=== PATIENT | female | born 1940 | race Caucasian/White ===

== ENCOUNTER 2024-02-08 16:14 | Inpatient (IN) | payer MEDICARE, OTHER, SELFPAY ==
[2024-02-08] VITALS (8 sets, daily range): BP systolic 80–123; BP diastolic 60–72; BMI 29.9
[2024-02-08 13:45] LABS: % Basophils 0.4 % (0-2); % Immature Granulocytes 0.5 % (0-0.5); % Monocytes 4.3 % (1.7-9.3); % Neutrophils 89.8 % (42.2-75.2); Absolute Basophils 0.1 10^3/uL (0-0.2); Absolute Immature Granulocytes 0.1 10^3/uL (0-0.05); Absolute Lymphocytes 0.7 10^3/uL (1.2-3.4); Absolute Monocytes 0.6 10^3/uL (0.1-0.6); Absolute Neutrophils 12.7 10^3/uL (1.4-6.5); Hematocrit 38.5 % (37.0-47.0); Hemoglobin 13.6 g/dL (12.0-16.0); Mean Corp Hgb Conc. 35.3 g/dL (33.0-37.0); Mean Corpuscular Hgb 33.9 pg (27.0-31.0); Mean Platelet Volume 10.9 fL (7.4-10.4); Nucleated Red Blood Cells % 0 %; Platelet Count 193 10^3/uL (130-400); Red Blood Cell Count 4.01 10^6/uL (4.20-5.40); Red Cell Dist. Width 14.2 % (11.5-14.5); White Blood Cell Count 14.1 10^3/uL (4.8-10.8)
--- NOTE | 2024-02-08 15:13 | ED.GENMED ---
History of Present Illness
General
Chief Complaint: Abdominal Pain
Time Seen by Provider: 02/08/24 13:07
History of Present Illness
History of Present Illness:
83-year-old female with history of hypertension, hyperlipidemia, and alcohol use disorder presents to the emergency department for evaluation of upper abdominal pain beginning yesterday after eating chicken. Pain has worsened throughout the day
associated with occasional vomiting. No fevers or chills. According to her daughter she is typically quite lively and vibrant and has not wanted to get out of bed today. No prior abdominal surgeries
Review of Systems
Review of Systems
Allergies reviewed?: Yes
All Other Systems: ROS reviewed and negative except as documented in HPI and ROS
Phy Exam
Physical Exam
Physical Exam:
GEN: Well appearing, NAD, WDWN
Eyes: PERRLA, EOMs intact, no scleral icterus
HENT: NCAT, oral mucosa moist
Lungs: CTAB, no wheezes, rales, rhonchi, normal chest wall excursion
Cardiac: RRR, no M/R/G, no peripheral edema. Radial pulses 2+ bilat
Abdomen: Soft, moderate upper abdominal tenderness with positive Weaver sign
Neuro: AO x 3
MSK: No gross deformity or ecchymosis. No edema. No digital clubbing
Skin: No rashes, petechiae. Normal color, no pallor or jaundice.
Psych: Calm, cooperative, proper hygiene
Course
Orders/Labs/Results
Orders:
Orders
02/08/24 13:17
US Abdomen Complete/Upper Urgent
Comment:
Reason For Exam: upper abd pain
02/08/24 13:18
Electrocardiogram (*1) Urgent
Reason for Study: Abdominal Pain
EKG- Treatment ONCE
02/08/24 13:25
Complete Blood Count/With Diff Urgent
02/08/24 14:57
Piperacillin/Tazo 3.375 Gram [Zosyn] 3.375 gram in 50 ml IV NOW
02/08/24 15:04
Comprehensive Metabolic Panel Urgent
Lipase Urgent
Abnormal Lab Results
02/08/24
13:25
WBC 14.1 H 10^3/uL
(4.8-10.8)
RBC 4.01 L 10^6/uL
(4.20-5.40)
MCH 33.9 H pg
(27.0-31.0)
MPV 10.9 H fL
(7.4-10.4)
Abs Immat Gran (auto) 0.1 H 10^3/uL
(0-0.05)
Absolute Neuts (auto) 12.7 H 10^3/uL
(1.4-6.5)
Absolute Lymphs (auto) 0.7 L 10^3/uL
(1.2-3.4)
Neutrophils % 89.8 H %
(42.2-75.2)
Lymphocytes % 5.0 L %
(20.5-51.1)
02/08/24 13:25
Vital Signs
Initial and Last Documented VS:
Initial Vital Signs
Temp Pulse Resp BP Pulse Ox
97.8 F 91 16 115/66 98
02/08/24 12:53 02/08/24 12:53 02/08/24 12:53 02/08/24 12:53 02/08/24 12:53
Last Documented Vital Signs
Temp Pulse Resp BP Pulse Ox
97.8 F 96 27 123/72 96
02/08/24 12:53 02/08/24 13:32 02/08/24 13:32 02/08/24 13:32 02/08/24 13:32
MDM/Problems Addressed
MDM/Problems Addressed:
Workup consistent with acute cholecystitis. General surgery made aware, will admit the patient to the hospital service due to concern for potential withdrawal syndrome while hospitalized. IV antibiotic started
*Critical Care Note
Total Time (30-74mins, 75-104mins- exclusive of procedures): Not Applicable
ED Attending Note
-
Portions of this chart may have been created with voice recognition software.� Occasional wrong word or��sound alike� substitutions may have occurred due to the inherent limitations of voice recognition software.
Discharge Plan
Departure
Patient Disposition: Admit
Date of Disposition: 02/08/24
Time of Disposition: 15:22
Presentation/result/management discussed w/ accepting MD/DO: Hospitalist
Discharge Problem:
Acute cholecystitis
Prescriptions:
No Action
multivitamin with folic acid [Tab-A-Rodolfo] 1 TABLET tablet
1 tab PO DAILY Qty: 0 0RF
atorvastatin 20 MG tablet
20 mg PO HS
aspirin 325 MG tablet,delayed release (DR/EC)
81 mg PO HS
atenolol 50 MG tablet
50 mg PO HS
tramadol 50 MG tablet
50 mg PO Q6HPRN PRN (Reason: MILD PAIN) Qty: 12 0RF
lorazepam 0.5 MG tablet
0.5 mg PO HSPRN PRN (Reason: sleep) Qty: 4 0RF
docusate sodium 100 MG capsule
100 mg PO BID 0RF
alum-mag hydroxide-simeth [Mag-Al Plus] 30 ML suspension
30 ml PO Q4HPRN PRN (Reason: indigestion) 0RF
losartan-hydrochlorothiazide 1 TAB tablet
1 tab PO DAILY Qty: 0 0RF
lorazepam 0.5 MG tablet
0.5 mg PO HSPRN PRN (Reason: sleep) Qty: 0 0RF
Referrals:
Adair Loyola MD [Family Provider] -
Interventions
Interventions:
*Risk Screen - Suicide Last Done: 02/08/24 13:27
*General Assessment Last Done: 02/08/24 13:27
*Neglect/Abuse Screening Last Done: 02/08/24 13:27
ED- Fall Risk Assessment Last Done: 02/08/24 13:27
*ED COVID-19 Vaccine History Last Done: 02/08/24 13:27
XP-Faifbl-Pzxkcgmozx Assessment Last Done: 02/08/24 13:27
Discharge Date and Time
Print Language: URUGUAYAN
[2024-02-08] MEDS: ZOSYN 50 IV ×2 (15:23→19:26)
[2024-02-08] MEDS: NSS 500 IV (15:46)
--- NOTE | 2024-02-08 15:55 | HPS.HSE ---
Family Physician
-
Family Physician: Adair Loyola
Chief Complaint
-
abdominal pain
History of Present Illness
83yo with PMHx of anxiety, HTN, HLD came with 1 day of generalized abdominal pain without nausea. US concerning for cholecystitis. No diarrhea or fever noted. Patient is drinking appr 4Oz of wine nightly.
Medical History
Past Medical History
Past Medical History: Reports Other
Additional Past Medical History:
see HPI
Past Surgical History: Reports None
Social History
Tobacco: Non-smoker
Alcohol: Daily
Drug: None
Family History
Family History: Not pertinent
Allergies / Home Medications
Allergies reflects when Allergies were last updated in [facility].
Home Medications with original date entered in [facility]
Allergy/Medication List:
Allergies
Allergy/AdvReac Type Severity Reaction Status Date / Time
No Known Allergies Allergy Verified 02/08/24 12:56
Home Medications
multivitamin with folic acid 400 mcg tablet (Tab-A-Rodolfo) 1 tab PO DAILY ##0 12/12/13
lorazepam 0.5 mg tablet 0.5 mg PO HSPRN PRN sleep ##0 12/18/13
losartan 100 mg-hydrochlorothiazide 25 mg tablet 1 tab PO DAILY ##0 12/18/13
aspirin 325 mg tablet,delayed release 81 mg PO HS 01/06/19
atenolol 50 mg tablet 50 mg PO HS 01/06/19
atorvastatin 20 mg tablet 20 mg PO HS 01/06/19
aluminum-mag hydroxide-simethicone 200 mg-200 mg-20 mg/5 mL oral susp (Mag-Al Plus) 30 ml PO Q4HPRN PRN indigestion 01/09/19
docusate sodium 100 mg capsule 100 mg PO BID 01/09/19
lorazepam 0.5 mg tablet 0.5 mg PO HSPRN PRN sleep ##4 01/09/19
tramadol 50 mg tablet 50 mg PO Q6HPRN PRN MILD PAIN ##12 01/09/19
Review of Systems
-
History Source: Patient
A 12 point ROS was completed and negative except as noted: Yes
Abdomen/GI: Reports Abdominal Pain
Physical Exam
Vital Signs
Vital Signs
Temp Pulse Resp BP Pulse Ox
97.8 F 96 27 123/72 96
02/08/24 12:53 02/08/24 13:32 02/08/24 13:32 02/08/24 13:32 02/08/24 13:32
Physical Exam
General: No Apparent Distress
HEENT: NormoCephalic
Respiratory: Clear; No Wheezes or Rales
Cardiac: S1/S2
GI: Soft, Tender and Distended
Musculoskeletal: No Clubbing, No Cyanosis and No Edema
Skin: Warm
Neuro: Awake, Alert, Oriented and AO x 3
Psych: Calm
Laboratory Results
-
02/08/24 13:25
Laboratory Results
Total Bilirubin Cancelled 02/08/24 14:42
AST Cancelled 02/08/24 14:42
ALT Cancelled 02/08/24 14:42
Alkaline Phosphatase Cancelled 02/08/24 14:42
Lipase Cancelled 02/08/24 14:42
Data Reviewed
-
Ultrasound: Report Reviewed by me
Lab Data: Labs Reviewed by me
Impression/Plan
-
A/P:
#Abdominal pain, most likely cholecystitis with cholelithiasis
CBD WNL
Will need CT abd - however BMP/LFT pending at the time of admission
Check Lipase
Ceftriaxone/Flagyl (since CrCl not available)
NPO, IVF
GenSx consult
#Essential HTN
#HLD
cont meds when able to take PO
#Daily alcohol use
Unclear if abuse present
Start MSAS protocol
DVT ppx hep
DNR/DNI - discussed in details with patient
I have spent at least 58min reviewing chart, test results, communication with consultants and direct patient care
[2024-02-08 16:00] LABS: ALT (SGPT) 17 U/L (0-35); AST (SGOT) 23 U/L (14-36); Albumin 3.8 g/dl (3.5-5.0); Alkaline Phosphatase 47 U/L (38-126); Blood Urea Nitrogen 19 mg/dl (7-17); Calcium 10.1 mg/dl (8.4-10.2); Carbon Dioxide 24 mmol/L (22-30); Chloride 101 mmol/L (98-107); Estimated Creatinine Clearance 46 ml/min; Glucose 116 mg/dl (70-99); Lipase 28 U/L (23-300); Potassium 4.2 mmol/L (3.5-5.1); Sodium 137 mmol/L (135-145); Total Bilirubin 1.7 mg/dl (0.2-1.3); Total Protein 6.1 g/dl (6.3-8.2); eGFR > 60.00
--- NOTE | 2024-02-08 16:27 | W.PN.UPDATE ---
Update Note
Progress Note Update
Kidney function normal - proceed with CT abd/pelvis with contrast and switch Abx to Zosyn. Mild bilirubin elevation, most likely 2/2 cholecystitis, will follow LFT
--- NOTE | 2024-02-08 16:34 | CON.GS ---
Medical History
-
Chief Complaint: abdominal pain
History of Present Illness:
Ms Canela is an 83 yo female with a h/o HTN, CKD, CLAIRE, and daily ETOH who presents with RUQ pain which began last night. She notes that she was at a restaurant and was unable to eat due to pain and nausea and shortly thereafter developed vomiting
as well. Pain persisted overnight and she was unable to get out of bed this morning. She notes her daughter who is a physician did an abdominal exam and recommended she present to the ED for evaluation. She denies fevers or chills. She denies bowel
or bladder changes.
Past Medical History
Past Medical History: HTN, Hypercholesterolemia, Psychiatric (CLAIRE) and Other (CKD)
Past Surgical History: Orthopedic (BL TKR 2013, ORIF L ankle 2019)
Social History
Tobacco: Non-Smoker
Alcohol: Daily (1-2 glasses of wine)
Drug: None
Living: With Family
Family History
Family History: Reviewed & Not Pertinent
Allergies / Home Medications
Allergy/AdvReac Type Severity Reaction Status Date / Time
No Known Allergies Allergy Verified 02/08/24 12:56
Med list not available
Review of Systems
-
History Source: Patient
All other systems: Negative unless noted
A 10 point review of systems was completed, and was negative except as per HPI.
Physical Exam
Vital Signs
Temp Pulse Resp BP Pulse Ox
97.8 F 96 27 123/72 96
02/08/24 12:53 02/08/24 13:32 02/08/24 13:32 02/08/24 13:32 02/08/24 13:32
02/07/24 02/08/24 02/09/24
06:59 06:59 06:59
Actual Weight 76.6 kg
Body Mass Index (BMI) 29.9
Lab Results
02/08/24 13:25
02/08/24 15:25
WBC 14.1 10^3/uL (4.8-10.8) H 02/08/24 13:25
Hgb 13.6 g/dL (12.0-16.0) 02/08/24 13:25
Hct 38.5 % (37.0-47.0) 02/08/24 13:25
Plt Count 193 10^3/uL (130-400) 02/08/24 13:25
Abs Immat Gran (auto) 0.1 10^3/uL (0-0.05) H 02/08/24 13:25
Neutrophils % 89.8 % (42.2-75.2) H 02/08/24 13:25
Physical Exam
General: Well Developed, Well Nourished and No Apparent Distress
HEENT: Normocephalic and Moist Mucous Membranes
Respiratory: Non Labored Respirations
GI: Soft, Non Distended and Tender (RUQ with +Weaver's)
Skin: Warm and Dry
Neuro: Awake, Alert and AO x 3
Psych: Calm
Data Reviewed
-
Ultrasound: Image Personally Visualized and interpreted, Report Reviewed by me, Discussed with Physician and Discussed with Patient
Labs: Labs Reviewed by me, Discussed with Physician and Discussed with Patient
Old Records: Reviewed
Assessment / Plan
-
83 yo female presenting with RUQ pain for approximately 24 hours with associated nausea and vomiting. Tenderness on exam with US findings consistent with ACC. Leukocytosis present with mildly elevated bilirubin. AFVSS.
--Admit to hospitalist service
--Continue IV abx
--Continue NPO, ok for po meds
--Will plan for OR in the AM for laparoscopic cholecystectomy with intraoperative cholangiogram
--Analgesics/antiemetics as needed
--VTE ppx with SCD's
--- NOTE | 2024-02-08 16:50 | PTCARENOTE ---
Pt received from the Ed via stretcher. Transport was w/o incident. Pt is AAOx3, HRR, Lungs are clear, resp. easy. Pt denies pain or nausea at this time. VSS, Pt is afebrile. Pt instructed on plan of care, and procedure for voicing cares and
concerns. Pt verbalized understanding of instructions, call severino is within reach.
[2024-02-08 16:52] LABS: Direct Bilirubin 0.2 mg/dl (0.0-0.4); LDH 206 U/L (120-246)
[2024-02-08] MEDS: OMNIPAQUE 50 ML PO (17:50)
[2024-02-08] MEDS: ZOSYN IV (18:37)
[2024-02-08] MEDS: LR 1000 IV (18:38)
[2024-02-08] MEDS: LOVENOX 40 MG SC (18:38)
[2024-02-08 20:27] LABS: Phosphorus 3.9 mg/dl (2.5-4.5)
[2024-02-08 20:32] LABS: Alcohol None Detected
[2024-02-08 21:07] LABS: INR 1.18; PT 14.8 Sec (11.4-14.6)
[2024-02-08 21:08] LABS: APTT 49.7 Sec (23.4-35.0)
[2024-02-08] MEDS: MAGNESIUM SULFATE 50 IV (22:05)
[2024-02-09] VITALS (12 sets, daily range): BP systolic 105–122; BP diastolic 54–68
[2024-02-09] MEDS: ZOSYN 50 IV ×4 (01:05→23:11)
[2024-02-09 02:22] LABS: Urine Albumin Trace (Neg - Trace); Urine Bilirubin Negative (Negative); Urine Character Clear (Clear); Urine Glucose Negative (Negative); Urine Ketone Negative (Negative); Urine Leukocyte Negative (Negative); Urine Nitrite Negative (Negative); Urine Occult Blood Negative (Negative); Urine Specific Gravity 1.005 (<1.030); Urine Urobilinogen Negative (Neg - 1+); Urine pH 6.5 (5.0-9.0)
[2024-02-09 02:27] LABS: Urine Color Yellow
[2024-02-09 02:34] LABS: Amphetamines Negative (Negative); Barbiturates Negative (Negative); Benzodiazepines Negative (Negative); Buprenorphine Negative (Negative); Cocaine Negative (Negative); Methadone Negative (Negative); Methamphetamines Negative (Negative); Opiates Negative (Negative); Phencyclidine Negative (Negative)
[2024-02-09 02:35] LABS: Marijuana Negative (Negative); Tricyclic Antidepressants Negative (Negative)
--- NOTE | 2024-02-09 06:05 | PTCARENOTE ---
first set of CHG wipes done.
[2024-02-09 06:35] LABS: ALT (SGPT) 14 U/L (0-35); AST (SGOT) 18 U/L (14-36); Albumin 3.2 g/dl (3.5-5.0); Alkaline Phosphatase 51 U/L (38-126); Blood Urea Nitrogen 20 mg/dl (7-17); Calcium 9.4 mg/dl (8.4-10.2); Carbon Dioxide 24 mmol/L (22-30); Chloride 99 mmol/L (98-107); Estimated Creatinine Clearance 38 ml/min; Glucose 97 mg/dl (70-99); Potassium 3.6 mmol/L (3.5-5.1); Sodium 137 mmol/L (135-145); Total Bilirubin 1.7 mg/dl (0.2-1.3); Total Protein 5.5 g/dl (6.3-8.2); eGFR 49.86
[2024-02-09 06:49] LABS: % Basophils 0.6 % (0-2); % Eosinophils 0.1 % (0-6); % Immature Granulocytes 0.7 % (0-0.5); % Neutrophils 83.6 % (42.2-75.2); Absolute Basophils 0.1 10^3/uL (0-0.2); Absolute Immature Granulocytes 0.1 10^3/uL (0-0.05); Absolute Lymphocytes 1.4 10^3/uL (1.2-3.4); Absolute Monocytes 0.7 10^3/uL (0.1-0.6); Absolute Neutrophils 11.6 10^3/uL (1.4-6.5); Hematocrit 30.6 % (37.0-47.0); Hemoglobin 10.8 g/dL (12.0-16.0); Mean Corp Hgb Conc. 35.3 g/dL (33.0-37.0); Mean Corpuscular Hgb 32.6 pg (27.0-31.0); Mean Corpuscular Volume 92.4 fL (81.0-99.0); Mean Platelet Volume 10.8 fL (7.4-10.4); Nucleated Red Blood Cells % 0 %; Platelet Count 184 10^3/uL (130-400); Red Blood Cell Count 3.31 10^6/uL (4.20-5.40); Red Cell Dist. Width 14.1 % (11.5-14.5); White Blood Cell Count 13.8 10^3/uL (4.8-10.8)
--- NOTE | 2024-02-09 07:55 | W.PN.HOSP.TC ---
Today's Communication/Plan
-
for OR
decrease IVF
Assessment / Plan
Assessment / Plan
83yo with PMHx of anxiety, HTN, HLD came with 1 day of generalized abdominal pain without nausea. US concerning for cholecystitis. No diarrhea or fever noted. US and as confirmed on CT - mild cholecystitis pending OR onn 02/09/24
A/P:
#Abdominal pain, most likely cholecystitis with cholelithiasis
#Mild indirect bilirubinemia
#Liver lesions, too small to characterize, possible cysts
CBD WNL
Lipase WNL
Zosyn
NPO, IVF
GenSx consult
LDH WNL, possible Gilbert vs 2/2 acute cholecystitis, follow LFT
Follow up with PCP for MRI of the liver
#mild Cr elevation
in view of recent contrast - follow Cr, cont hydration IV
#Anemia
exacerbated by IVF
follow Hgb, advise outpatietn follow up with PCP
#Non-specific T-wave abnormality on EKG, possible left atrial enlargement
no chest pain or SOB, no Hx of CAD
recommend outpatient stress test and Echo upon d/c - patient verbalized understanding and will work with her life skills teacher on it
#Essential HTN
#HLD
cont meds when able to take PO
#Daily alcohol use
Unclear if abuse present
Start MSAS protocol
DVT ppx hep
DNR/DNI - discussed in details with patient
I have spent at least 38min reviewing chart, test results, communication with consultants and direct patient care
Anticipated Discharge: 24 - 48 hours
Subjective/Interval History
-
Date of Service: February 09, 2024
Objective Data
-
Labs:
Laboratory Results
02/08/24 02/09/24
20:39 05:35
WBC 13.8 H
Hgb 10.8 L D
Hct 30.6 L
Plt Count 184
PT 14.8 H
INR 1.18
APTT 49.7 H
Sodium 137
Potassium 3.6
Chloride 99
Carbon Dioxide 24
BUN 20 H
Creatinine 1.1 H
Glucose 97
Calcium 9.4
Total Bilirubin 1.7 H
AST 18
ALT 14
Alkaline Phosphatase 51
Vital Signs:
Vital Signs
Temp Pulse Resp BP Pulse Ox
99.2 F 77 16 110/60 96
02/09/24 03:17 02/09/24 03:17 02/09/24 03:17 02/09/24 03:17 02/09/24 03:17
Review of Systems
-
History Source: Patient
All other systems: Reviewed and negative
Abdomen/GI: Reports Abdominal Pain
Physical Exam
-
General: No Apparent Distress
HEENT: Normocephalic
Respiratory: Clear to Auscultation
Cardiac: Regular Rhythm; Negative Murmur
GI: Soft, Nondistended and Tender
Musculoskeletal: No Clubbing, No Cyanosis and No Edema
Neuro: Awake, Alert, Oriented and AO x 3
Psych: Calm
[2024-02-09] MEDS: LR IV (08:57)
[2024-02-09] MEDS: VITAMIN B1 100 MG PO (08:57)
[2024-02-09] MEDS: FOLVITE 1 MG PO (08:57)
[2024-02-09] MEDS: LR 1000 IV (09:00)
[2024-02-09] MEDS: ZOSYN IV (13:08)
--- NOTE | 2024-02-09 14:12 | W.IMMPOSTOP ---
Addendum entered and electronically signed by Milton Spivey MD 02/09/24 17:08:
patient's daughter, Eugene and son were updated over the phone
Original Note:
Surgical Immed Post Op Note
-
Primary Surgeon: Milton Spivey MD
Assisting Surgeon: Ying Gutiérrez NP
Pre-op Diagnosis: acute cholecystitis
Post-op Diagnosis: acute cholecystitis
Procedure Performed: laparoscopic cholecystectomy, lysis of adhesions greater than 30 mins
Anesthesia Type: geta
Specimen / Cultures: gallbladder
Estimated Blood Loss: 25mL
Complications: none
Operative Findings: very inflamed and edematous gallbladder with omentum adherent to it; additional omental adhesions to the right mid-abdomen; identifed critical view of safety; clipped and divided the cystic duct and artery; encountered bile
spillage during retraction of the gallbladder wall; immediately suctioned; irrigated the RUQ at the end of the case
--- NOTE | 2024-02-09 14:12 | OR.RPT ---
Operative Report
Operative Report
DATE OF OPERATION: 02/09/2024
SURGEON: Milton Spivey MD
PREOPERATIVE DIAGNOSIS: Acute cholecystitis
POSTOPERATIVE DIAGNOSIS: Acute cholecystitis
OPERATION: Laparoscopic cholecystectomy, lysis of adhesions greater than 30 minutes
ASSISTANTS:
1. Ying Gutiérrez NP
ANESTHESIA: General anesthesia
ESTIMATED BLOOD LOSS: 25 mL
FINDINGS:
1. Omental adhesions to the dome of the gallbladder as well as the right mid abdomen; taken down with blunt dissection and LigaSure
2. Significantly edematous and inflamed gallbladder, no necrosis or perforation; aspirated 50 mL of thick bile to improve manipulation of the gallbladder
3. Identified the critical view of safety; clipped and divided the cystic artery and duct; mild bile spillage due to retraction of the gallbladder, which was immediately suctioned; no liver injuries during dissection off the gallbladder fossa
SPECIMENS:
1. Gallbladder
DRAINS: None
COMPLICATIONS: No immediate complications.
INDICATIONS: The patient is an 83-year-old female who presented with 1 day of worsening RUQ abdominal pain associated with nausea and vomiting and a leukocytosis of 13.8. An ultrasound showed small stones and sludge in the gallbladder, associated
with gallbladder wall thickening and edema with a sonographic Weaver sign. Her CBD was 5 mm and direct bilirubin was normal. Therefore, I recommended a cholecystectomy. The operation was discussed with the patient in detail, including the risks,
benefits and alternatives. Risks described included, but not limited to, bleeding, infection, damage to nearby structures (i.e., common bile duct, liver, bowel), conversion to open, and anesthetic risks. The patient understood and agreed to proceed.
The consent was signed and placed in the chart.
PROCEDURE IN DETAIL: The patient was taken to the operating room and placed on the operating table in supine position. Sequential compression devices were placed bilaterally. General anesthesia was then induced and the patient was intubated without
complication. The patient was secured to the bed with 2 seatbelts and the arms were secured to the armboards. Long catheter was placed with sterile technique. A footboard was placed in case steep reverse Trendelenburg positioning becomes
necessary. Anesthesia placed an orogastric tube. IV Zosyn was given pre-incision. The abdomen was then prepped and draped in the usual sterile fashion. A time-out was then performed verifying the correct patient, procedure, operative site,
positioning, and special equipment.
An 11 blade scalpel was used to create a stab incision at Hill's point. The Veress needle was carefully inserted. After three clicks, insufflation was attached to the Veress needle and an opening pressure of less than 8 mmHg was noted. The
abdomen was insufflated to a pressure of 15 mmHg. The patient tolerated insufflation well. Next, the 11 blade scalpel was used to create a curvilinear incision supraumbilically. Using the 5-0 camera and the Optiview trocar, the first 5 mm port
was placed under direct visualization ensuring no injury to adjacent organs. A 5-30 camera was then connected and inserted, and the abdomen was inspected. No injury from initial trocar placement or Veress needle placement was noted. The
gallbladder was noted to be dilated and inflamed, completely obscured by omental adhesions. Additionally, there were omental adhesions to the anterior abdominal wall in the right mid abdomen, precluding safe placement of our retraction ports.
Under direct visualization, a 12 mm trocar was placed in the right epigastrium, just lateral to the falciform ligament. The adhesions were taken down with a combination of blunt dissection and [employer]ant LigaSure, taking care to avoid injury to the
bowel. Once the area was clear, additional trocars were inserted under direct visualization in the following locations: two 5 mm trocars along the right costal margin in the anterior axillary line and mid-axillary line. The table was placed in
steep reverse Trendelenburg position with the right side up.
Using a laparoscopic peanut, the omental attachments were swept off of the dome of the bladder bluntly with minimal bleeding. Once the dome of the gallbladder was visualized, a laparoscopic needle was used to aspirate bile from the gallbladder as
it was too distended to be grasped. About 50mL of bile was aspirated. The dome of the gallbladder was then grasped with a locking atraumatic grasper and retracted over the dome of the liver. Filmy adhesions were taken down bluntly between the
omentum and the gallbladder. The infundibulum was also grasped with an atraumatic grasper and retracted toward the right lower quadrant to expose the triangle of Calot. The peritoneum was then scored and incised with electrocautery along the
medial and lateral margins of the gallbladder. The gallbladder was significantly edematous and friable, making this dissection difficult. Using a combination of hook cautery and blunt dissection, the cystic duct and cystic artery were identified
and circumferentially dissected. The critical view of safety was achieved. The cystic duct was then clipped 5 times. A small intervening vein, possibly the cystic vein, was doubly clipped as well. The cystic duct and cystic vein were cut so that
3 clips remained on the cystic duct stump and 1 clip on the vein. The cystic artery was then clipped three times and cut so that 2 clips remained on the stump. During the dissection, bile spillage from the gallbladder was encountered during
retraction due to the friability of the gallbladder wall. This was quickly controlled with suction.
The gallbladder was then dissected from its peritoneal attachments to the gallbladder fossa by electrocautery. Prior to complete removal of the gallbladder, the gallbladder fossa was closely evaluated. No liver injuries were identified and
hemostasis was assured using electrocautery. The gallbladder was then placed in an endoscopic retrieval bag through the epigastric port and set to the side. The gallbladder fossa was then copiously irrigated with saline and suctioned. There was no
evidence of bleeding from the gallbladder fossa or cystic artery or leakage of bile from the cystic duct stump. Then, the specimen was removed from the epigastric port. Due to the size of the inflamed gallbladder, the fascia had to be stretched
with a Radha clamp. The gallbladder was passed off as specimen. The fascia of the epigastric port was closed with an 0 Vicryl figure-of-8 stitch using laparoscopic visualization and a suture passer. The remaining ports were removed under direct
vision and no bleeding was noted from the trocar sites. The laparoscope was withdrawn and the umbilical trocar removed. The abdomen was allowed to collapse. The port sites were injected with 30mL of 0.25% Marcaine with epinephrine mixed with
0.3mg of dexamethasone for local anesthesia. The skin was closed with subcuticular sutures of 4-0 Monocryl and Dermabond.
At this point, the procedure was complete. All needle, sponge and instrument counts were correct. The patient tolerated the procedure well. The patient was extubated without complication and was transferred to the recovery room in stable condition.
Of note, Ying Gutiérrez, SIMBA, veterinary assistant, was necessary during this procedure for traction, countertraction, and exploratory purposes. I was present for the entire duration of the case.
DICTATED BY: Milton Spivey MD
--- NOTE | 2024-02-09 16:44 | PTCARENOTE ---
Received patient from PACU around 1530 via bed in stable condition. Patient reoriented to room. Family at bedside. 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 DTV.
[2024-02-09] MEDS: LOVENOX 40 MG SC (17:13)
[2024-02-10] VITALS (7 sets, daily range): BP systolic 116–146; BP diastolic 60–79; PULSE 76; O2SAT 99
[2024-02-10] MEDS: LR 1000 IV
[2024-02-10] MEDS: ATIVAN 0.5 MG PO ×2 (00:21→23:53)
[2024-02-10] MEDS: ZOSYN 50 IV ×4 (05:30→23:52)
[2024-02-10 07:06] LABS: % Basophils 0.1 % (0-2); % Immature Granulocytes 0.7 % (0-0.5); % Lymphocytes 4.4 % (20.5-51.1); % Neutrophils 91.8 % (42.2-75.2); Absolute Immature Granulocytes 0.1 10^3/uL (0-0.05); Absolute Lymphocytes 0.5 10^3/uL (1.2-3.4); Absolute Monocytes 0.3 10^3/uL (0.1-0.6); Absolute Neutrophils 10.6 10^3/uL (1.4-6.5); Hematocrit 31.3 % (37.0-47.0); Hemoglobin 10.8 g/dL (12.0-16.0); Mean Corp Hgb Conc. 34.5 g/dL (33.0-37.0); Mean Corpuscular Hgb 32.3 pg (27.0-31.0); Mean Corpuscular Volume 93.7 fL (81.0-99.0); Mean Platelet Volume 11.6 fL (7.4-10.4); Nucleated Red Blood Cells % 0 %; Platelet Count 166 10^3/uL (130-400); Red Blood Cell Count 3.34 10^6/uL (4.20-5.40); White Blood Cell Count 11.5 10^3/uL (4.8-10.8)
[2024-02-10 07:31] LABS: ALT (SGPT) 23 U/L (0-35); AST (SGOT) 31 U/L (14-36); Albumin 3.1 g/dl (3.5-5.0); Alkaline Phosphatase 55 U/L (38-126); Blood Urea Nitrogen 20 mg/dl (7-17); Calcium 8.7 mg/dl (8.4-10.2); Carbon Dioxide 25 mmol/L (22-30); Chloride 100 mmol/L (98-107); Direct Bilirubin 0.2 mg/dl (0.0-0.4); Estimated Creatinine Clearance 38 ml/min; Glucose 171 mg/dl (70-99); Potassium 3.7 mmol/L (3.5-5.1); Sodium 136 mmol/L (135-145); Total Bilirubin 0.9 mg/dl (0.2-1.3); Total Protein 5.4 g/dl (6.3-8.2); eGFR 49.86
[2024-02-10] MEDS: VITAMIN B1 100 MG PO (08:28)
[2024-02-10] MEDS: FOLVITE 1 MG PO (08:28)
--- NOTE | 2024-02-10 09:05 | W.PN.HOSP.TC ---
Today's Communication/Plan
-
Advancing diet. IV antibiotics. IVF. PT
Assessment / Plan
Assessment / Plan
Physical exam:
General: Acutely ill, nontoxic.
HEENT: Normocephalic, Atraumatic and Moist Mucous Membranes
Respiratory: Clear to Auscultation; Negative Wheezes, Rales or Rhonchi
Cardiac: Regular Rhythm and S1/S2
GI: Soft, postop findings, mild tender and Nondistended
Musculoskeletal: No Clubbing, No Cyanosis and No Edema
Neuro: Awake, Alert and Oriented
Psych: Calm
A/P:
Acute cholecystitis:
Status post lap cholecystectomy on 02/08
Surgery advancing to low-fat diet
Surgery recommend continue IV antibiotics
WBC trending down
T bilirubin trending down
PT eval
Discharge disposition when cleared by surgery
#Liver lesions
Consider outpatient MRCP
#mild Cr elevation
in view of recent contrast - follow Cr while in-house, cont hydration IV
#Anemia
exacerbated by IVF
follow Hgb while in-house, advise outpatient follow up with PCP
#Non-specific T-wave abnormality on EKG, possible left atrial enlargement
no chest pain or SOB, no Hx of CAD
recommend outpatient stress test and Echo upon d/c - patient verbalized understanding and will work with her investor on it. Currently chest pain-free and no cardiac issues postop.
#Essential HTN
#HLD
cont meds
#Daily alcohol use
No evidence of withdrawal at the moment
Continue MSAS protocol
DVT ppx hep
DNR
Anticipated Discharge: 24 - 48 hours
Subjective/Interval History
-
Date of Service: February 10, 2024
Patient had some vomiting earlier today. Mild postop abdominal discomfort. Afebrile. No chest pain or shortness of breath
Objective Data
-
Labs:
Laboratory Results
02/10/24
05:52
WBC 11.5 H
Hgb 10.8 L
Hct 31.3 L
Plt Count 166
Sodium 136
Potassium 3.7
Chloride 100
Carbon Dioxide 25
BUN 20 H
Creatinine 1.1 H
Glucose 171 H
Calcium 8.7
Total Bilirubin 0.9
AST 31
ALT 23
Alkaline Phosphatase 55
Vital Signs:
Vital Signs
Temp Pulse Resp BP Pulse Ox
98.4 F 72 15 127/79 96
02/10/24 07:07 02/10/24 07:07 02/10/24 07:07 02/10/24 07:07 02/10/24 07:07
I&O
02/09/24 02/10/24 02/11/24
06:59 06:59 06:59
Intake Total 2246 / 2246
Output Total 450 / 450
Balance 1796 / 1796
--- NOTE | 2024-02-10 09:26 | W.PN.CRS1 ---
Today's Communication / Plan
-
As below
Assessment/Plan
-
83-year-old female with PMH of HTN, HLD, EtOH use disorder (drinks 1 to 2 glasses of wine per night) who presents with right upper quadrant abdominal pain associated with nausea and vomiting since eating dinner last night. The pain is unremitting
and has never happened before. In the ED, her WBC was 14.1. An ultrasound showed small gallstones and sludge, gallbladder wall thickening associated with pericholecystic fluid and a positive sonographic Weaver sign, consistent with acute
cholecystitis. Her CBD was 5 mm. Her total bili was 1.7, but direct bili 0.2, not concerning for choledocholithiasis.
POD 1 lap ccy, GRISELDA
AFVSS
WBC 11.5 from 13.8, Hb stable, CR 1.1 from 1.1, T. bili 0.9, direct bili 0.2, LFTs normal
� Advance to low-fat diet; instructed to go slow and hold off if any N/V or bloating
� Continue pain control with Tylenol and tramadol
�Continue IV Zosyn; would treat with postop antibiotics for 4 days total due to bile spillage and significant inflammation
� Okay for DVT PPx with Lovenox
� OOB/IS; will order for PT to evaluate for dispo home
� Appreciate hospitalist
Subjective Data
Subjective Data
Date of Service: February 10, 2024
No overnight events.
Pain controlled.
Denies nausea/vomiting. Tolerating clear diet.
+flatus +BMs (had a couple episodes of small volume liquid stool without control) +voiding
Pt is OOB.
Objective Data
-
Vital Signs
Temp Pulse Resp BP Pulse Ox
98.4 F 72 15 127/79 96
02/10/24 07:07 02/10/24 07:07 02/10/24 07:07 02/10/24 07:07 02/10/24 07:07
Intake & Output
02/09/24 02/10/24 02/11/24
06:59 06:59 06:59
Intake Total 2246 / 2246
Output Total 450 / 450
Balance 1796 / 1796
Intake:
Oral fluids 1351 / 1351
IV fluids (Total) 795 / 795
nORM 75 / 75
IV piggybacks 100 / 100
Output:
Urine, Long 450 / 450
Other:
Number of approximated MODERATE 2 3
amounts of urine
Number of approximated LARGE 1
amounts of urine
How many times incontinent 2
SMALL amount urine
Lab Results
02/10/24 05:52
02/10/24 05:52
Physical Exam
-
General: No Acute Distress and AOx3
HEENT: Grossly Normal
Abdomen: Soft, Distended (Mildly distended, minimally tympanic), Tender (Appropriately tender near incisions), No Guarding and No Rebound
Skin: Warm and Dry
Wound: No Signs of Infection, Dressing in Place (With Dermabond), No Skin Erythema and Other (Incisions with surrounding ecchymosis, stable)
--- NOTE | 2024-02-10 10:28 | CM ---
Pt admitted with cholecystitis
Met with pt at bedside
Pt reports she lives alone in a 2 story home; 1 step to enter, 10 steps to 2nd fl
Independent with ADL's, ambulates without device, daughter assists with shopping and household needs
DME - rolling walker x's2, cane
SNF - denies past hx
HH - has had in past - unable to recall agency
Has ride at discharge
PCP - Adair Loyola
Pharm - [facility]
CM remains available for discharge needs
Plan - anticipate home no needs vs with VN when medically stable
[2024-02-10] MEDS: ZYRTEC 5 MG PO (12:00)
[2024-02-10] MEDS: LOVENOX 40 MG SC (17:17)
[2024-02-11] MEDS: ZOSYN 50 IV (05:31)
[2024-02-11 07:10] VITALS: BP 156/80
--- NOTE | 2024-02-11 08:41 | W.PN.HOSP.TC ---
Today's Communication/Plan
-
Discharge planning today
Assessment / Plan
Assessment / Plan
Physical exam:
General: No acute distress.
HEENT: Normocephalic, Atraumatic and Moist Mucous Membranes
Respiratory: Clear to Auscultation; Negative Wheezes, Rales or Rhonchi
Cardiac: Regular Rhythm and S1/S2
GI: Soft, postop findings, Non tender and Nondistended
Musculoskeletal: No Clubbing, No Cyanosis and No Edema
Neuro: Awake, Alert and Oriented
Psych: Calm
A/P:
Acute cholecystitis:
Status post lap cholecystectomy on 02/08
Surgery advanced to low-fat diet
Surgery recommend continue IV antibiotics and switch to oral
Surgery cleared her for discharge today
WBC trending down
T bilirubin trending down
PT eval
Discussed with daughter at bedside
#Liver lesions
Consider outpatient MRCP
#mild Cr elevation
in view of recent contrast - follow Cr while in-house, cont hydration IV
#Anemia
exacerbated by IVF
follow Hgb while in-house, advise outpatient follow up with PCP
#Non-specific T-wave abnormality on EKG, possible left atrial enlargement
no chest pain or SOB, no Hx of CAD
recommend outpatient stress test and Echo upon d/c - patient verbalized understanding and will work with her dryerman/woman on it. Currently chest pain-free and no cardiac issues postop.
#Essential HTN
#HLD
cont meds
#Daily alcohol use
No evidence of withdrawal at the moment
Continue MSAS protocol
DVT ppx hep
DNR
Anticipated Discharge: Today
Subjective/Interval History
-
Date of Service: February 11, 2024
Patient doing well. No new complaint
Objective Data
-
Labs:
Laboratory Results
02/11/24
06:00
WBC Pending
Hgb Pending
Hct Pending
Plt Count Pending
Sodium Pending
Potassium Pending
Chloride Pending
Carbon Dioxide Pending
BUN Pending
Creatinine Pending
Glucose Pending
Calcium Pending
Total Bilirubin Pending
AST Pending
ALT Pending
Alkaline Phosphatase Pending
Vital Signs:
Vital Signs
Temp Pulse Resp BP Pulse Ox
98.0 F 62 18 156/80 98
02/11/24 07:10 02/11/24 07:10 02/11/24 07:10 02/11/24 07:10 02/11/24 07:10
I&O
02/10/24 02/11/24 02/12/24
06:59 06:59 06:59
Intake Total 2246 / 2246 2019
Output Total 450 / 450
Balance 1796 / 1796 2019
[2024-02-11] MEDS: VITAMIN B1 100 MG PO (09:18)
[2024-02-11] MEDS: FOLVITE 1 MG PO (09:19)
[2024-02-11 09:20] LABS: % Basophils 0.1 % (0-2); % Eosinophils 0.1 % (0-6); % Immature Granulocytes 0.2 % (0-0.5); % Lymphocytes 11.5 % (20.5-51.1); % Neutrophils 82.1 % (42.2-75.2); Absolute Monocytes 0.5 10^3/uL (0.1-0.6); Absolute Neutrophils 6.8 10^3/uL (1.4-6.5); Hemoglobin 11.1 g/dL (12.0-16.0); Mean Corp Hgb Conc. 34.7 g/dL (33.0-37.0); Mean Corpuscular Hgb 33.2 pg (27.0-31.0); Mean Corpuscular Volume 95.8 fL (81.0-99.0); Mean Platelet Volume 10.7 fL (7.4-10.4); Nucleated Red Blood Cells % 0 %; Platelet Count 198 10^3/uL (130-400); Red Blood Cell Count 3.34 10^6/uL (4.20-5.40); Red Cell Dist. Width 13.9 % (11.5-14.5); White Blood Cell Count 8.3 10^3/uL (4.8-10.8)
[2024-02-11 09:41] LABS: ALT (SGPT) 19 U/L (0-35); AST (SGOT) 20 U/L (14-36); Albumin 3.1 g/dl (3.5-5.0); Alkaline Phosphatase 49 U/L (38-126); Blood Urea Nitrogen 19 mg/dl (7-17); Calcium 8.9 mg/dl (8.4-10.2); Carbon Dioxide 25 mmol/L (22-30); Chloride 103 mmol/L (98-107); Estimated Creatinine Clearance 42 ml/min; Glucose 110 mg/dl (70-99); Potassium 3.7 mmol/L (3.5-5.1); Sodium 141 mmol/L (135-145); Total Bilirubin 0.6 mg/dl (0.2-1.3); Total Protein 5.5 g/dl (6.3-8.2)
--- NOTE | 2024-02-11 09:58 | W.PN.CRS1 ---
Today's Communication / Plan
-
okay for d/c
follow up course of 2 more days antibiotics
Assessment/Plan
-
83-year-old female with PMH of HTN, HLD, EtOH use disorder (drinks 1 to 2 glasses of wine per night) who presents with right upper quadrant abdominal pain associated with nausea and vomiting since eating dinner last night. The pain is unremitting
and has never happened before. In the ED, her WBC was 14.1. An ultrasound showed small gallstones and sludge, gallbladder wall thickening associated with pericholecystic fluid and a positive sonographic Weaver sign, consistent with acute
cholecystitis. Her CBD was 5 mm. Her total bili was 1.7, but direct bili 0.2, not concerning for choledocholithiasis.
POD 2 lap ccy, GRISELDA
AFVSS
WBC 8.3, Hb stable, LFTs normal
� Continue low-fat diet; instructed to go slow and hold off if any N/V or bloating
� Continue pain control with Tylenol and tramadol
�Continue IV Zosyn; would treat with postop antibiotics for 4 days total due to bile spillage and significant inflammation
� Okay for DVT PPx with Lovenox
� OOB/IS
� Appreciate hospitalist
- OKay for discharge from our standpoint. Follow up with Dr. Spivey in the office in 2 weeks.
Subjective Data
Subjective Data
Date of Service: February 11, 2024
Patient states that she is feeling well. She is 'sore' but otherwise okay. She has no nausea. She is hungry.
Objective Data
-
Vital Signs
Temp Pulse Resp BP Pulse Ox
98.0 F 62 18 156/80 98
02/11/24 07:10 02/11/24 07:10 02/11/24 07:10 02/11/24 07:10 02/11/24 07:10
Intake & Output
02/10/24 02/11/2402/11/24
06:59 06:59 06:59
Intake Total 2246 / 2246 2019
Output Total 450 / 450
Balance 1796 / 1796 2019
Intake:
Oral fluids 1351 / 1351 1919 / 1919
IV fluids (Total) 795 / 795
nORM 75 / 75
IV piggybacks 100 / 100 100 / 100
Output:
Urine, Long 450 / 450
Other:
Number of approximated SMALL 1
amounts of urine
Number of approximated MODERATE 3 2
amounts of urine
Number of approximated LARGE 1
amounts of urine
How many times incontinent 2
SMALL amount urine
Lab Results
02/11/24 08:52
02/11/24 08:52
Physical Exam
-
General: No Acute Distress and AOx3
Abdomen: Soft, Non Distended and Non Tender
Skin: Warm and Dry
Incision: Clear, Dry, Intact
[2024-02-11 11:00] VITALS: BP 137/76
--- NOTE | 2024-02-11 11:42 | CM ---
Met with pt
Poss discharge today
Daughter present - will have family support (daughters available)
Has ride home with daughter
Discussed IMM
Plan - home no needs
--- NOTE | 2024-02-11 12:51 | W.DCSUMMARY ---
Discharge Summary
Discharge Data
Date of Admission: 02/08/24
Date of Discharge: 02/11/24
-
Pending Results: No
Hospital Course
Patient 82 years old female with history of hypertension, hyperlipidemia, alcohol use disorder, presented to the hospital abdominal pain nausea and vomiting. Patient presentation consistent with acute cholecystitis. Patient was started on IV
antibiotics and surgery consulted. Surgery took her to the OR on 02/08 and performed a laparoscopic cholecystectomy, lysis of adhesions. For states she had some nausea and discomfort. Patient was able to tolerate diet postop afterwards and has been
progressing well. Patient is hemodynamically stable. Surgery cleared her for discharge today. She will be discharged in stable condition.
Discharge duration: 35 minutes
Discharge Plan
-
Patient Disposition: Home (Routine Discharge)
Discharge Diagnosis/Procedures: Acute cholecystitis status post laparoscopic cholecystectomy
Condition: Good
Diet: Low Fat
Additional Diets: If you notice loose stools after surgery, eat a low fat diet
Activity: No strenuous activity
Additional Activity: Do not lift over 10lbs (gallon of milk) for the next 2-3 weeks
Driving Restrictions: No driving for 24 hours
Bathing Restrictions: OK to Shower
Wound Care: Wash abdomen gently with soap and water. Avoid scrubbing or picking off the glue.
Activity Restrictions/Additional Instructions:
Call your surgeon if you have worsening pain, nausea with vomiting or a fever >100.4
Referrals:
Milton Spivey MD [Active] - in two to three weeks
Adair Loyola MD [Family Provider] -
Prescriptions:
New
amoxicillin-pot clavulanate 875-125 mg tablet
1 tab PO Q12 Qty: 6 0RF
Continued
multivitamin with folic acid [Tab-A-Rodolfo] 1 TABLET tablet
1 tab PO DAILY Qty: 0 0RF
atorvastatin 20 MG tablet
20 mg PO HS
Rx Instructions:
pt takes it in the morning
aspirin 325 MG tablet,delayed release (DR/EC)
81 mg PO HS
Rx Instructions:
pt not taking anymore
atenolol 50 MG tablet
50 mg PO HS
Patient Comments:
pt takes at night
Rx Instructions:
Pt states she takes it at night
tramadol 50 MG tablet
50 mg PO Q6HPRN PRN (Reason: MILD PAIN) Qty: 12 0RF
Rx Instructions:
pt does not take anymore
lorazepam 0.5 MG tablet
0.5 mg PO HSPRN PRN (Reason: sleep) Qty: 4 0RF
Patient Comments:
pt denies using anymore
Rx Instructions:
duplicate
docusate sodium 100 MG capsule
100 mg PO BID 0RF
Patient Comments:
pt does not take anymore
Rx Instructions:
pt no longer takes
alum-mag hydroxide-simeth [Mag-Al Plus] 30 ML suspension
30 ml PO Q4HPRN PRN (Reason: indigestion) 0RF
Rx Instructions:
pt takes before dinner
losartan-hydrochlorothiazide 1 TAB tablet
1 tab PO DAILY Qty: 0 0RF
Patient Comments:
pt takes in the morning
lorazepam 0.5 MG tablet
0.5 mg PO HSPRN PRN (Reason: sleep) Qty: 0 0RF
Rx Instructions:
pt stopped taking this med
Discharge Orders:
Discharge Patient (As Directed); Ordered 02/11/24
Ordered By: Kehinde Garcia
Discharge Date and Time
Print Language: PORTUGUESE
== END 2024-02-11 14:34 | disposition home or self-care (01) | DRG 419 ==
LOC: 2 SOUTH 16:14
PROVIDERS: Physician Assistant; ADMITTING PHYSICIAN Internal Medicine; ATTENDING PHYSICIAN Hospitalist; CONSULT PHYSICIAN Surgery; EMERGENCY PHYSICIAN Emergency Medicine; FAMILY PHYSICIAN Family Medicine
PROC: 0FT44ZZ Resection of Gallbladder, Percutaneous Endoscopic Approach (ICD-10-PCS; 2024-02-09)
DX: K81.0 Acute cholecystitis (principal); I12.9 Hypertensive chronic kidney disease with stage 1 through stage 4 chronic kidney disease, or unspecified chronic kidney disease; N18.9 Chronic kidney disease, unspecified; Z66 Do not resuscitate; R94.31 Abnormal electrocardiogram [ECG] [EKG]; E78.00 Pure hypercholesterolemia, unspecified; D63.1 Anemia in chronic kidney disease; K66.0 Peritoneal adhesions (postprocedural) (postinfection); K76.9 Liver disease, unspecified; F41.1 Generalized anxiety disorder; Z96.653 Presence of artificial knee joint, bilateral; Z79.82 Long term (current) use of aspirin; Z79.899 Other long term (current) drug therapy
CPT/HCPCS: 88304; 71045; 74177; 76700; 80053; 80306; 81003; 82077; 82248; 83615; 83690; 83735; 84100; 85025; 85610; 85730; 86850; 86900; 86901; 93005; 96374; 97162; 97530; 99285; C1776; Q9967